=== PATIENT | female | born 1935 | race Caucasian/White ===

== ENCOUNTER 2017-07-08 22:45 | Emergency (ER) | payer OTHER ==
[2017-07-08] MEDS ORDERED: LISINOPRIL 20 MG TAB PO ONE (23:16)
--- NOTE | 2017-07-08 23:25 | EDPHY ---
H & P Stated Complaint: ELEV BP, HEART PALPITATIONS/HOLTER MONITOR Time Seen by Provider: 07/08/17 23:00 HPI/ROS: Chief Complaint: High blood pressure HPI: 82-year-old woman who has a history of hypertension for the last couple of months. She has had several hospitalizations in [place]. Within the last 2 months she had an episode of expressive aphasia which is associated with a blood pressure in the 200s. She was admitted to the hospital in [place] and had extensive evaluation including MRIs, carotid ultrasounds, echocardiograms. She is currently wearing a Holter monitor. Patient was started on lisinopril 2.5 mg 3 days ago after recommendation of her neurologist. The following day she noted that her blood pressure had improved to the 120 is 130 systolic. She was concerned however that the medication was not supposed to work for 2 weeks and she was concerned that she continue to take her blood pressure will go too low. Therefore she has not taken any further doses of lisinopril. She has an appoint with Dr. Gómez tomorrow afternoon. Tonight she checked her blood pressure noted that it was 200 systolic. She became concerned and anxious so she Re checked it noted that gone up to 225. She checked it for a 3rd time you continue to remain elevated. She denies any chest pain. No lightheadedness. No nausea or vomiting. No headache. No neurologic complaints. ROS: 10 point Review of Systems is negative except as noted in the HPI. PMH: Hypertension, GERD, hyperlipidemia Social History: No smoking, no alcohol, no recreational drug use Family History: non-contributory Physical Exam: Gen: Awake, Alert, No Distress HEENT: Nose: no rhinorrhea Eyes: PERRLA, EOMI Mouth: Moist mucosa Neck: Supple, no JVD Chest: nontender, lungs clear to auscultation Heart: S1, S2 normal, no murmur Abd: Soft, non-tender, no guarding Back: no CVA tenderness, no midline tenderness Ext: no edema, non-tender Skin: no rash Neuro: CN II-XII intact, Sensation grossly intact, Strength 5/5 in bilateral upper and lower extremities - Personal History Current Tetanus Diphtheria and Acellular Pertussis (TDAP): Yes - Medical/Surgical History Hx Asthma: No Hx Chronic Respiratory Disease: No Hx Diabetes: No Hx Cardiac Disease: No Hx Renal Disease: No Hx Cirrhosis: No Hx Alcoholism: No Hx HIV/AIDS: No Hx Splenectomy or Spleen Trauma: No Other PMH: arthritis, hyperlipidemia, HTN - Social History Smoking Status: Never smoked Constitutional: Initial Vital Signs Temperature (C) 36.4 C 07/08/17 22:52 Heart Rate 81 07/08/17 22:52 Respiratory Rate 16 07/08/17 22:52 Blood Pressure 225/116 H 07/08/17 22:52 O2 Sat (%) 95 07/08/17 22:52 O2 Delivery Mode Room Air Allergies/Adverse Reactions: unknown antibiotic Allergy (Uncoded 10/10/13 04:06) Home Medications: Medication Instructions Recorded Aspirin 07/08/17 Lisinopril 07/08/17 Lovastatin 07/08/17 Omeprazole 07/08/17 Medical Decision Making ED Course/Re-evaluation: 82-year-old woman with an episode of hypertension. She is not taking her lisinopril. Blood pressure is now down to 166/89. She has not have any findings suggestive of end-organ damage. She has had extensive recent workup. She has an appointment with Dr. Gómez tomorrow. Will discharge now with follow-up as planned. - Data Points Medications Given: Discontinued Medications Lisinopril (Zestril) 2.5 mg PO EDNOW ONE Stop: 07/08/17 23:17 Last Admin: 07/08/17 23:43 Dose: Not Given Departure - Departure Disposition: Home, Routine, Self-Care Clinical Impression: Hypertension Condition: Good Instructions: Hypertension (ED) Additional Instructions: Follow up with Dr. Gómez as scheduled tomorrow afternoon. Please resume taking your lisinopril as prescribed. Return to the emergency department for any concerns. Referrals: Ciro Gómez MD [[facility] Primary Care Provider] - As per Instructions
[2017-07-08 23:46] VITALS: BP 166/89
== END 2017-07-08 23:52 | disposition home or self-care (01) ==
DX: I10 Essential (primary) hypertension (principal); Z79.82 Long term (current) use of aspirin